=== PATIENT | female | born 1985 | race Caucasian/White ===

== ENCOUNTER → 2018-01-06 | Outpatient (CLI) | payer BC ==
--- NOTE | 2018-01-06 11:12 | US ---
EXAMINATION TYPE: Transabdominal DATE OF EXAM: 11/19/17 COMPARISON: NONE CLINICAL HISTORY: O46.91 BLEEDING/SPOTTING. Spotting yesterday and today, Pap done on saturday. No pre vious US for this . Hx of miscarriage EXAM PERFORMED: Transvaginal (TV) and Transabdominal (TA) EXAM MEASUREMENTS: GESTATIONAL AGE / DATING Dates by LMP: ( 9 weeks/0 days) EDC: 08/11/2018 Dates by Current Scan for: ( 5 weeks/4 days) EDC: 09/04/2018 MATERNAL ANATOMY Uterus: 9.8 x 5.0 x 3.3 cm Right Ovary: 2.7 x 1.8 x 2.0 cm Left Ovary: 2.4 x 1.3 x 1.1 cm Post CDS / Adnexa: free fluid in posterior cul de sac and adjacent to left ovary Presence of corpus luteal cyst: Hypoechoic lesion seen in right ovary = 1.7 x 1.7 x 1.6 cm GESTATION / SURVEY CRL: No CRL seen MSD: 1.0 cm (5 weeks/4 days) Yolk Sac (normal less than 6mm): 2.8 mm IUP: No pole seen within gestational sac Date of LMP: 11/04/2017, Beta HcG (if available): Not available at this time GS and YS seen. No CRL visualized. GS appears irregular shaped. Decidual reaction appears heterogen ous. IMPRESSION: 1. Probable spontaneous in progress. Correlate with serial beta hCG and/or ultrasound.
== END | disposition home or self-care (01) ==
LOC: RADUSWWP 09:36
PROVIDERS: ATTEND Obstetrics & Gynecology
DX: O46.91 Antepartum hemorrhage, unspecified, first trimester (principal); Z3A.00 Weeks of gestation of pregnancy not specified
CPT/HCPCS: 76801; 76817

== ENCOUNTER 2018-03-13 07:01 | Day surgery (SDC) | payer BC ==
[2018-03-12 12:39] VITALS: BMI 24.5
--- NOTE | 2018-03-12 17:43 | P.HPOB ---
History of Present Illness H&P Date: 03/12/18 Chief Complaint: Probable retained products following miscarriage This is a 32-year-old female 3 para 1 who presents for suction dilation and curettage due to probable retained products of conception after miscarriage. She began bleeding around January 10 and did pass tissue at that time. Her bleeding was heavy for about a week and then slowly tapered off it never stopped. Her bleeding has continued to get heavier. Her beta hCG levels have returned to negative. She was tried on Provera daily but this increased her bleeding rather than decreased it. She would like definitive surgical treatment to control her bleeding. Her blood type is A- and she did receive RhoGAM on 01/06/2018. Obstetrical history: . History of 1 vaginal delivery at term. History of 1 miscarriage. OUTSOLE FLEXER history: No history of sexual transmitted diseases. Last menstrual period was 11/04/2017. Social history: She is . She works part-time as a site medical director. Review of Systems Constitutional: Denies chills, Denies fever Eyes: denies blurred vision, denies pain Ears, nose, mouth and throat: Denies headache, Denies sore throat Cardiovascular: Denies chest pain, Denies shortness of breath Respiratory: Denies cough Gastrointestinal: Denies abdominal pain, Denies diarrhea, Denies nausea, Denies vomiting Genitourinary: Reports abnormal vaginal bleeding, Reports pelvic pain Neurological: Denies numbness, Denies weakness Psychiatric: Denies anxiety, Denies depression Past Medical History Past Medical History: Hyperlipidemia Additional Past Medical History / Comment(s): No meds for high cholestrol. History of Any Multi-Drug Resistant Organisms: None Reported Past Surgical History: No Surgical Hx Reported Past Anesthesia/Blood Transfusion Reactions: No Reported Reaction Past Psychological History: No Psychological Hx Reported Smoking Status: Never smoker Past Alcohol Use History: Occasional Past Drug Use History: None Reported - Past Family History Sister(s) Additional Family Medical History / Comment(s): double uterus Medications and Allergies Home Medications Medication Instructions Recorded Confirmed Type Cyanocobalamin (Vitamin B-12) 2,000 mcg PO DAILY 03/12/18 03/12/18 History [Vitamin B-12] L.acidoph,Paracasei, B.lactis 1 each PO DAILY 03/12/18 03/12/18 History [Probiotic] Allergies Allergy/AdvReac Type Severity Reaction Status Date / Time No Known Allergies Allergy Verified 03/12/18 12:31 Exam Osteopathic Statement: *. No significant issues noted on an osteopathic structural exam other than those noted in the History and Physical/Consult. Intake and Output 03/12/18 03/12/18 03/12/18 06:59 14:59 22:59 Other: Weight 60.781 kg HEENT: Within normal limits Heart: Regular rate and rhythm Lungs: Clear to auscultation bilaterally Abdomen: Soft, nontender Pelvic exam: Uterus is retroverted, small, with no adnexal masses or tenderness noted. Bloody discharge is noted from the cervix os is closed. Extremities: Negative Homans Assessment and Plan (1) Retained products of conception after miscarriage Status: Acute Code(s): O03.4 - INCOMPLETE SPONTANEOUS WITHOUT COMPLICATION SNOMED Code(s): 932846743 Plan: Proceed with suction dilation and curettage. I have discussed the risks, benefits, and alternative therapies for the above- mentioned procedure and for both sedation/anesthesia as well as necessary blood products administration, if indicated, as they pertain to this patient. The patient has indicated her understanding and acceptance of the risks and procedures discussed.
[~2018-03-13 07:01] MED LIST: DEXAMETHASONE SOD PHOSPHATE 10 MG/ML 1 ML VIAL IV ONE; HYDROmorphone 0.5 MG/0.5 ML SYRINGE IVP PRN; LACTATED RINGERS 1,000 ML IV SCH; LIDOCAINE 1% 20 ML VIAL (10MG/ML) FOR IV START INTRADERMA PRN; ONDANSETRON 4 MG/2 ML VIAL IVP ONE; Pre Op ABX Message 1 EACH MISC MISCELLANE ONE; SCOPOLAMINE 1.5MG/72HR PATCH TRANSDERM ONE
[2018-03-13 07:39] VITALS: RESP 16
[2018-03-13] MEDS ORDERED: MIDAZOLAM 2 MG/2 ML VIAL ONE (08:12)
[2018-03-13] MEDS ORDERED: fentaNYL (PF) 50 MCG/ML 2 ML AMP ONE (08:12)
[2018-03-13] MEDS ORDERED: KETOROLAC 30 MG/ML 1 ML VIAL ONE (08:12)
[2018-03-13] MEDS ORDERED: LIDOCAINE 1% INJ 10MG/ML (20 ML MDV) ONE (08:12)
[2018-03-13] MEDS ORDERED: PROPOFOL 10 MG/ML 20 ML VIAL IV ONE (08:12)
--- NOTE | 2018-03-13 08:34 | P.OP ---
Date of Procedure: 03/13/18 Preoperative Diagnosis: Probable retained products of conception following miscarriage Postoperative Diagnosis: Same Procedure(s) Performed: Suction dilation and curettage Anesthesia: BERNARDA Surgeon: Nevaeh Trejo Estimated Blood Loss (ml): 20 Pathology: other (Endometrial curettings, probable products of conception) Condition: stable Disposition: same day Indications for Procedure: This is a 32-year-old female 3 para 1 who presents for suction dilation and curettage due to probable retained products of conception after miscarriage. She began bleeding around January 10 and did pass tissue at that time. Her bleeding was heavy for about a week and then slowly tapered off it never stopped. Her bleeding has continued to get heavier. Her beta hCG levels have returned to negative. She was tried on Provera daily but this increased her bleeding rather than decreased it. She would like definitive surgical treatment to control her bleeding. Her blood type is A- and she did receive RhoGAM on 01/06/2018. Operative Findings: Uterus is mid position, sounded to 8 cm. No adnexal masses are palpated. A moderate amount of products of conception are obtained with suction curetting. Description of Procedure: The patient is taken to the operating room where she is placed in the dorsal lithotomy position. She is prepped and draped in the normal sterile fashion. Bladder is drained with a catheter. Examination is performed under anesthesia. Uterus is found to be mid position with no adnexal masses palpated. A weighted speculum was placed in the patient's vagina and a right angle retractor was used to visualize the cervix. The anterior lip of the cervix is grasped with a single-tooth tenaculum. Uterus is sounded to 8 cm. Cervix is gently dilated with Dias dilators until an 8 mm curved suction curet to be placed. Suction curetting was performed with a moderate amount of products of conception obtained. Next a medium-size sharp curet was gently introduced and gentle sharp curettage was performed one time with no further tissue obtained. Suction curetting was performed one further time to remove any blood clot. Good hemostasis was noted. The single-tooth tenaculum was removed from the anterior lip the cervix and pressure was applied with a ring forcep. Once the ring forcep was removed no active bleeding was noted. All instruments are removed from the vagina. All sponge and needle counts are correct. The patient is then taken to recovery room in stable condition.
[2018-03-13 08:49] VITALS: TEMP 98.6
[2018-03-13 09:48] VITALS: BP 109/72; PULSE 70
== END 2018-03-13 10:01 | disposition home or self-care (01) ==
LOC: OR 07:01
PROVIDERS: ATTEND Obstetrics & Gynecology
DX: O02.1 Missed abortion (principal); E78.5 Hyperlipidemia, unspecified
CPT/HCPCS: 88305; 59820; J2250; J1100; J2405; J2001; J3010; J1885; J2704

== ENCOUNTER → 2019-01-15 | Outpatient (CLI) | payer BC ==
--- NOTE | 2019-01-16 07:42 | US ---
EXAMINATION TYPE: US OB >= 14 wk fetus DATE OF EXAM: 01/15/2019 COMPARISON: None CLINICAL HISTORY: [id number] Large for datesLarge for Dates. . TECHNIQUE: Transabdominal (TA) GESTATIONAL AGE / DATING Physician Established: (35 weeks/6 days) EDC: 02/13/2019 Dates by LMP: Unknown Dates by First Scan: This is first scan (35 weeks/2 days) EDC: 02/17/2019 Dates by Current Scan: (35 weeks/2 days) EDC: 02/17/2019 SURVEY IUP: Single PLACENTA: Posterior. Small venous lakes seen superiorly. PREVIA: No Previa PEDRO: 16.14 cm Normal CERVICAL LENGTH (transabdominal: norm > 3.0cm): 3.49 cm BIOMETRY PRESENTATION: Vertex LIE: Longitudinal BPD: 8.50 cm 34 weeks / 2 days HC: 31.81 cm 35 weeks / 6 days AC: 32.17 cm 36 weeks / 1 days FL: 7.0 cm 35 weeks / 6 days ESTIMATED WEIGHT IN GRAMS: 2771 grams ESTIMATED WEIGHT IN LBS/OZ: 6 lbs. 2 oz. WEIGHT PERCENTAGE BASED ON ESTABLISHED DATES: 48.8% HC/AC: 0.99 Normal FL/AC: 21.75 Normal HEART RATE: 144 bpm RHYTHM: Normal Single live intrauterine gestation is seen. No cervical thickening is evident. Normal cephalad presen tation is identified. No ultrasound evidence for placenta previa amniotic fluid index is calculated w ithin normal limits. biometry measurements are concordant felt within normal limits. Third trim alexsander gestation noted. IMPRESSION: As above.
== END ==
LOC: RADUSWWP 15:27
PROVIDERS: ATTEND Obstetrics & Gynecology
DX: O36.63X0 Maternal care for excessive fetal growth, third trimester, not applicable or unspecified (principal); Z3A.35 35 weeks gestation of pregnancy
CPT/HCPCS: 76805

== ENCOUNTER 2019-02-17 06:30 | Inpatient (IN) | payer BC ==
--- NOTE | 2019-02-16 20:51 | P.HPOB ---
History of Present Illness H&P Date: 02/16/19 Chief Complaint: Induction of labor, postdates This is a 33 y.o. female, 4, para 1, with an estimated date of confinement of 02/13/2019, estimated gestational age of 40-4/7 weeks, who presents for induction of labor due to postdates. She admits to good movement and has been feeling occasional irregular contractions. course has been uncomplicated. labs: GC/Chlamydia/Trichomonas-negative Hepatitis B surface antigen-negative RPR-nonreactive Rubella-immune Blood type-A- Antibody screen-negative, RhoGAM was given at approximately 28 weeks Hemoglobin-14.1 Toxoplasma-negative Random glucose-80 One hour Glucola-117 Group B streptococcus-positive Obstetrical history: . History of 1 vaginal delivery that was complicated by a uterine inversion after delivery. She also has a history of 2 miscarriages. Gynecologic history: No history of sexual transmitted diseases. Social history: She is . She works part-time as a biomedical engineering internship. Review of Systems Constitutional: Denies chills, Denies fever Eyes: denies blurred vision, denies pain Ears, nose, mouth and throat: Denies headache, Denies sore throat Cardiovascular: Denies chest pain, Denies shortness of breath Respiratory: Denies cough Gastrointestinal: Reports abdominal pain (Irregular contractions) Genitourinary: Reports pelvic pain, Reports Musculoskeletal: Reports low back pain Integumentary: Denies pruritus, Denies rash Neurological: Denies numbness, Denies weakness Psychiatric: Denies anxiety, Denies depression Past Medical History Past Medical History: Hyperlipidemia Additional Past Medical History / Comment(s): No meds for high cholestrol. Psoriasis. History of Any Multi-Drug Resistant Organisms: None Reported Additional Past Surgical History / Comment(s): D&C Past Anesthesia/Blood Transfusion Reactions: No Reported Reaction Past Psychological History: No Psychological Hx Reported Smoking Status: Never smoker Past Alcohol Use History: Occasional Past Drug Use History: None Reported - Past Family History Sister(s) Additional Family Medical History / Comment(s): double uterus Medications and Allergies Home Medications Medication Instructions Recorded Confirmed Type Cyanocobalamin (Vitamin B-12) 2,000 mcg PO DAILY 03/12/18 03/13/18 History [Vitamin B-12] L.acidoph,Paracasei, B.lactis 1 each PO DAILY 03/12/18 03/13/18 History [Probiotic] Allergies Allergy/AdvReac Type Severity Reaction Status Date / Time No Known Allergies Allergy Verified 03/13/18 07:23 Exam Osteopathic Statement: *. No significant issues noted on an osteopathic structural exam other than those noted in the History and Physical/Consult. HEENT: Within normal limits Heart: Regular rate and rhythm Lungs: Clear to auscultation bilaterally Abdomen: Cervix: 2-1/2 cm/60%/-2 station heart tones: 140s by Doppler Extremities: Negative Homans Assessment and Plan (1) Post-dates Status: Acute Code(s): O48.0 - POST-TERM SNOMED Code(s): 27275401 (2) Group B Streptococcus carrier, +RV culture, currently Status: Acute Code(s): O99.820 - STREPTOCOCCUS B CARRIER STATE COMPLICATING SNOMED Code(s): 1817976265208 Plan: Proceed with oxytocin induction of labor. Expectant management. Epidural anesthesia if desired. Antibiotic prophylaxis for group B streptococcus.
[2019-02-17] MEDS ORDERED: LIDOCAINE 1% 20 ML VIAL (10MG/ML) FOR IV START INTRADERMA PRN (06:40)
[2019-02-17] MEDS ORDERED: CARBOPROST TROMETHAMINE 250 MCG/ML 1 ML AMP IM PRN (06:40)
[2019-02-17] MEDS ORDERED: OXYTOCIN 30 UNITS/500 ML NS 30 UNIT in SALINE 1 500ML.BAG IV SCH (06:40)
[2019-02-17] MEDS ORDERED: LIDOCAINE 0.5% (PF) 5 MG/ML (50 ML SDV) SQ PRN (06:40)
[2019-02-17] MEDS ORDERED: AMPICILLIN 2,000 MG in SODIUM CHLORIDE 0.9% 100 ML IVPB STA (06:40)
[2019-02-17] MEDS ORDERED: METHYLERGONOVINE 0.2 MG/ML 1 ML AMP IM PRN (06:40)
[2019-02-17] MEDS ORDERED: OXYTOCIN 10 UNIT/ML 1 ML VIAL IM PRN (06:40)
[2019-02-17] MEDS ORDERED: TERBUTALINE 1 MG/ML VIAL SQ PRN (06:40)
[2019-02-17 06:52] VITALS: BMI 31.6
[2019-02-17] MEDS: LACTATED RINGERS 1,000 ML IV SCH ×2 (07:00→11:20)
[2019-02-17 07:37] LABS: Anisocytosis Slight; Basophils % (A) 0 %; Eosinophils # (A) 0.1 k/uL (0-0.7); Eosinophils % (A) 1 %; HCT 34.2 % (34.0-46.0); HGB 10.9 gm/dL (11.4-16.0); Hypochromasia Moderate; Lymphocytes # (A) 1.7 k/uL (1.0-4.8); Lymphocytes % (A) 22 %; MCH 24.7 pg (25.0-35.0); MCHC 31.8 g/dL (31.0-37.0); Monocytes # (A) 0.3 k/uL (0-1.0); Monocytes % (A) 3 %; Neutrophils # (A) 5.5 k/uL (1.3-7.7); Neutrophils % (A) 70 %; Platelet Count 204 k/uL (150-450); Poikilocytosis Slight; RBC 4.39 m/uL (3.80-5.40); RDW 16.2 % (11.5-15.5); WBC 7.8 k/uL (3.8-10.6)
[2019-02-17 07:42] LABS: MCV 77.8 fL (80.0-100.0)
[2019-02-17] MEDS: AMPICILLIN 1,000 MG in SODIUM CHLORIDE 0.9% 50 ML IVPB SCH ×2 (11:21→14:54)
[2019-02-17] MEDS ORDERED: diphenhydrAMINE 50 MG CAP PO PRN (17:05)
[2019-02-17] MEDS ORDERED: BENZOCAINE/MENTHOL SPRAY 1 GM/SPRAY AEROSOL TOPICAL PRN (17:05)
[2019-02-17] MEDS ORDERED: IBUPROFEN 600 MG TAB PO PRN (17:05)
[2019-02-17] MEDS ORDERED: SIMETHICONE 80 MG CHEWABLE PO PRN (17:05)
[2019-02-17] MEDS ORDERED: ZOLPIDEM 5 MG TAB PO PRN (17:05)
[2019-02-17] MEDS ORDERED: LANOLIN CREAM 5 GM TUBE TOPICAL PRN (17:05)
[2019-02-17] MEDS ORDERED: HYDROCORTISONE 2.5% RECTAL CREAM 30 GM TUBE RECTAL PRN (17:05)
[2019-02-17] MEDS ORDERED: OXYTOCIN 20 UNITS/1000 ML NS 1,000 ML IV SCH (17:05)
[2019-02-17] MEDS ORDERED: ACETAMINOPHEN TAB 325 MG TAB PO PRN (17:05)
[2019-02-17] MEDS ORDERED: WITCH HAZEL 1 EACH MED..PAD TOPICAL PRN (17:05)
[2019-02-17] MEDS ORDERED: diphenhydrAMINE 25 MG CAP PO PRN (17:05)
[2019-02-17] MEDS ORDERED: diphenhydrAMINE 50 MG/ML 1 ML VIAL IVP PRN ×2 (17:05)
--- NOTE | 2019-02-17 17:07 | P.PROBDLV ---
Vaginal Delivery Note - . Vaginal Delivery Note: The patient progressed to complete dilation after oxytocin induction of labor and artificial rupture membranes with clear fluid noted. She did receive ampicillin while in labor due to positive group B streptococcus. She also received epidural anesthesia. Once reaching complete dilation, she began pushing. 's head came to a crown. With one further push, the infant's head delivered across the perineum and a straight occiput anterior lie. She is encouraged to push one further time to release the anterior shoulder. At first this appeared to be the right shoulder, but then this did not easily released and therefore the baby was turned towards the left shoulder. When this shoulder did not release, the left shoulder was swept posteriorly and delivered posteriorly. Nose and mouth were then bulb suctioned and the remainder the infant easily delivered and was placed on mother's abdomen. Cord was clamped and cut and was taken to warmer for evaluation. A viable male was noted with scores of 9 at 1 minute and 9 at 5 minutes and weight was noted to be 9 lbs. 3 oz. Baby was moving all extremities easily and good cry was noted. Next the placenta delivered shortly thereafter, intact, with a three-vessel cord. This was partially manually extracted due to her history of uterine inversion to make sure that the uterus did not invert with delivery of the placenta. Uterus did contract well after oxytocin was given and uterine massage was carried out. Inspection of the perineum revealed no perineal lacerations. Estimated blood loss is approximately 150 mL's. Both mother and infant are in stable condition.
[2019-02-17 18:39] VITALS: RESP 16
[2019-02-17] MEDS: SENNOSIDES-DOCUSATE SODIUM 1 EACH TAB PO SCH (20:00)
[2019-02-18 06:56] LABS: Basophils % (A) 0 %; Eosinophils # (A) 0.1 k/uL (0-0.7); Eosinophils % (A) 1 %; HGB 10.4 gm/dL (11.4-16.0); Hypochromasia Marked; Lymphocytes # (A) 1.9 k/uL (1.0-4.8); Lymphocytes % (A) 17 %; MCH 24.7 pg (25.0-35.0); MCHC 31.4 g/dL (31.0-37.0); MCV 78.5 fL (80.0-100.0); Mean Platelet Volume 9.8; Monocytes # (A) 0.5 k/uL (0-1.0); Monocytes % (A) 5 %; Neutrophils # (A) 8.6 k/uL (1.3-7.7); Neutrophils % (A) 76 %; Platelet Count 198 k/uL (150-450); Poikilocytosis Slight; RBC 4.21 m/uL (3.80-5.40); RDW 15.6 % (11.5-15.5); WBC 11.4 k/uL (3.8-10.6)
--- NOTE | 2019-02-18 09:06 | P.DS ---
Providers Date of admission: 02/17/19 06:37 Expected date of discharge: 02/18/19 Attending physician: Nevaeh Trejo Primary care physician: Stated None - Discharge Diagnosis(es) (1) Post-dates Current Visit: No Status: Acute (2) Group B Streptococcus carrier, +RV culture, currently Current Visit: No Status: Acute Hospital Course: This is a 33 y.o. female, 4, para 1, who presented at 40-4/7 weeks for induction of labor. She underwent oxytocin induction of labor and delivered a viable male with scores of 9 at 1 minute and 9 at 5 minutes and weight of 9 pounds, 3 oz on 02/17/2019. Her course has been uncomplicated. She is breast-feeding. Lochia is decreasing. She is not taking anything for pain. Vital signs are stable. Abdomen is soft and non-tender. Extremities show negative Donald's. Impression is status post vaginal delivery day #1. Plan is to discharge home today. She will follow up in 6 weeks. Routine instructions are given. She is advised to call the office with any concerns. Procedures: Oxytocin induction of labor. Spontaneous vaginal delivery of viable male infant on 02/17/2019 Patient Condition at Discharge: Stable Plan - Discharge Summary New Discharge Prescriptions: No Action L.acidoph,Paracasei, B.lactis [Probiotic] 1 each PO DAILY Cyanocobalamin (Vitamin B-12) [Vitamin B-12] 2,000 mcg PO DAILY Discharge Medication List Cyanocobalamin (Vitamin B-12) [Vitamin B-12] 2,000 mcg PO DAILY 03/12/18 [History] L.acidoph,Paracasei, B.lactis [Probiotic] 1 each PO DAILY 03/12/18 [History] Follow up Appointment(s)/Referral(s): Nevaeh Trejo DO [Doctor of Osteopathic Medicine] - 6 Weeks Discharge Disposition: HOME SELF-CARE
[2019-02-18 18:51] VITALS: BP 116/62; PULSE 66; TEMP 98
[2019-02-18] MEDS: SENNOSIDES-DOCUSATE SODIUM 1 EACH TAB PO SCH (18:51)
== END 2019-02-18 18:00 | disposition home or self-care (01) | DRG 807 ==
LOC: 4FBP 06:37
PROVIDERS: ADMIT Obstetrics & Gynecology; ATTEND Obstetrics & Gynecology
PROC: 10E0XZZ Delivery of Products of Conception, External Approach (ICD-10-PCS; principal; 2019-02-17)
PROC: 10907ZC Drainage of Amniotic Fluid, Therapeutic from Products of Conception, Via Natural or Artificial Opening (ICD-10-PCS; 2019-02-17)
PROC: 3E033VJ Introduction of Other Hormone into Peripheral Vein, Percutaneous Approach (ICD-10-PCS; 2019-02-17)
PROC: 00HU33Z Insertion of Infusion Device into Spinal Canal, Percutaneous Approach (ICD-10-PCS; 2019-02-17)
PROC: 3E0R3BZ Introduction of Anesthetic Agent into Spinal Canal, Percutaneous Approach (ICD-10-PCS; 2019-02-17)
DX: O48.0 Post-term pregnancy (principal); Z37.0 Single live birth; O99.824 Streptococcus B carrier state complicating childbirth; O26.893 Other specified pregnancy related conditions, third trimester; O99.284 Endocrine, nutritional and metabolic diseases complicating childbirth; E78.5 Hyperlipidemia, unspecified; O99.72 Diseases of the skin and subcutaneous tissue complicating childbirth; L40.9 Psoriasis, unspecified; Z3A.40 40 weeks gestation of pregnancy; Z67.11 Type A blood, Rh negative
CPT/HCPCS: 85025; 86850; 86900; 86901

== ENCOUNTER → 2019-06-23 | Outpatient (CLI) | payer BC ==
--- NOTE | 2019-06-23 16:00 | XR ---
Right foot HISTORY: Pain 3 views of the right foot Bone mineralization, joint spaces and alignment are maintained. There is no fracture or dislocation. IMPRESSION: Normal right foot.
== END | disposition home or self-care (01) ==
LOC: RADXRYALE 11:46
PROVIDERS: ATTEND Physician Assistant Medical
DX: M79.671 Pain in right foot (principal)

== ENCOUNTER → 2021-09-25 | Outpatient (CLI) | payer BC ==
--- NOTE | 2021-09-26 11:22 | MM ---
Reason for exam: screening (asymptomatic). Baseline mammogram. History: Family history of breast cancer in maternal grandmother. Physical Findings: Nurse did not find any significant physical abnormalities on exam. MG 3D Screening Mammo W/Cad Bilateral CC, MLO, and XCCL view(s) were taken. The breast tissue is heterogeneously dense. This may lower the sensitivity of mammography. Finding #1: Architectural distortion in the upper quadrant of the right breast MLO medially. Finding #2: There is an intermediate concern, suspicious 11 mm high density, lobulated mass located 10-11 cm from the nipple in the upper outer quadrant of the left breast. There is a 2cm equal density in the right breast 6.8cm from the nipple middle position. ASSESSMENT: Incomplete: need additional imaging evaluation, BI-RAD 0 RECOMMENDATION: Ultrasound of both breasts. [facility] will attempt to contact patient to return for ultrasound.
== END | disposition home or self-care (01) ==
LOC: RADMAMWWP 13:35
PROVIDERS: ATTEND Obstetrics & Gynecology
DX: Z12.31 Encounter for screening mammogram for malignant neoplasm of breast (principal)
CPT/HCPCS: 77063; 77067

== ENCOUNTER → 2021-10-09 | Outpatient (CLI) | payer BC ==
--- NOTE | 2021-10-10 08:27 | USB ---
Reason for exam: additional evaluation requested from abnormal screening. History: Family history of breast cancer in maternal grandmother. Physical Findings: Nurse did not find any significant physical abnormalities on exam. US Breast Workup Limited PATRICIA Left limited breast ultrasound including focal area of concern, retroareolar and axilla demonstrates a 0.7 x 0.5 x 0.8cm mixed lesion at 2 o'clock. Right limited breast ultrasound including focal area of concern, retroareolar and axilla demonstrates no cystic or solid lesion seen. These results were verbally communicated with the patient and result sheet given to the patient on 10/09/21. ASSESSMENT: Probably benign, BI-RAD 3 RECOMMENDATION: Follow-up diagnostic mammogram of both breasts in 6 months.
== END ==
LOC: RADUSWWP 14:59
PROVIDERS: ATTEND Obstetrics & Gynecology
DX: R92.8 Other abnormal and inconclusive findings on diagnostic imaging of breast (principal)

== ENCOUNTER → 2021-11-29 | Outpatient (CLI) | payer BC ==
--- NOTE | 2021-11-29 15:59 | XR ---
EXAMINATION TYPE: XR chest 2V DATE OF EXAM: 11/29/2021 COMPARISON: 03/18/2013 TECHNIQUE: PA and lateral views submitted. HISTORY: Chronic cough FINDINGS: The lungs are clear and there is no pneumothorax, pleural effusion, or focal pneumonia. Heart size normal. No overt failure. Slight curvature of the spine. IMPRESSION: 1. No acute process.
== END | disposition home or self-care (01) ==
LOC: RADXRYALE 15:25
PROVIDERS: ATTEND Physician Assistant
DX: R07.1 Chest pain on breathing (principal); R05.9 Cough, unspecified
CPT/HCPCS: 71046

== ENCOUNTER → 2022-04-02 | Outpatient (CLI) | payer BC ==
--- NOTE | 2022-04-02 11:24 | MM ---
Reason for Exam: Clinical finding. Last screening mammogram was performed 6 month(s) ago. Patient History: Menarche at age 14. First Full-Term at age 30. Late child-bearing (after 30). Hormonal Contraceptives, from age 22 until age 29. Maternal grandmother had breast cancer. Last menstrual period: 03/13/2022 Risk Values: Laura 5 year model risk: 0.4%. NCI Lifetime model risk: 12.7%. Tissue Density: The breast tissue is heterogeneously dense. This may lower the sensitivity of mammography. Findings: Analyzed By CAD. Asymmetric density posterior superior right MLO view remains unchanged. Additional nodular focal asymmetry posterior upper-outer quadrant left breast remains unchanged. Continued short interval follow-up recommended. No significant change from prior exams. Overall Assessment: Probably benign, BI-RAD 3 Management: Diagnostic Mammogram of both breasts in 6 months. For the bilateral areas of asymmetric density. Total one-year follow-up on both sides. Patient should continue monthly self breast exams. Results were given to the patient verbally at the time of exam. Electronically signed and approved by: Domingo Fagan M.D. Radiologist
== END | disposition home or self-care (01) ==
LOC: RADMAMWWP 10:53
PROVIDERS: ATTEND Obstetrics & Gynecology
DX: R92.8 Other abnormal and inconclusive findings on diagnostic imaging of breast (principal)
CPT/HCPCS: 77062; 77066

== ENCOUNTER → 2023-10-09 | Outpatient (CLI) | payer BC ==
--- NOTE | 2023-10-10 10:07 | MM ---
Reason for Exam: Screening (asymptomatic). Last screening mammogram was performed 12 month(s) ago. Patient History: Menarche at age 14. First Full-Term at age 30. Late child-bearing (after 30). Hormonal Contraceptives, from age 22 until age 29. Maternal grandmother had breast cancer. Last menstrual period: 09/16/2023 Risk Values: Laura 5 year model risk: 0.6%. NCI Lifetime model risk: 12.6%. Prior Study Comparison: 09/25/2021 Bilateral Screening Mammogram, [facility]. 04/02/2022 Bilateral MG 3D diag mammo w/cad [facility], [facility]. 10/02/2022 Bilateral MG 3D diag mammo w/cad PATR[facility], [facility]. Tissue Density: The breast tissue is extremely dense which could obscure a lesion on mammography. Findings: Analyzed By CAD. There is no suspicious group of microcalcifications or new suspicious mass in either breast. Benign-appearing calcification. Overall Assessment: Benign, BI-RAD 2 Management: Screening Mammogram of both breasts in 1 year. . Patient should continue monthly self-breast exams. A clinical breast exam by your physician is recommended on an annual basis. This exam should not preclude additional follow-up of suspicious palpable abnormalities. Note on Laura scores and lifetime risk: 1. A Laura score greater than 3% is considered moderate risk. If this is the case, consider specialist referral to assess eligibility for a risk reducing agent. 2. If overall lifetime risk for the development of breast cancer is 20% or higher, the patient may qualify for future screening with alternating mammogram and breast MRI. Electronically signed and approved by: Bryan Manuel M.D. Radiologis
== END | disposition home or self-care (01) ==
LOC: RADMAMWWP 09:21
PROVIDERS: ATTEND Family Medicine
DX: Z12.31 Encounter for screening mammogram for malignant neoplasm of breast (principal); Z80.3 Family history of malignant neoplasm of breast
CPT/HCPCS: 77063; 77067

== ENCOUNTER → 2024-10-12 | Outpatient (CLI) | payer BC ==
--- NOTE | 2024-10-12 09:44 | MM ---
Reason for Exam: Screening (asymptomatic). Last screening mammogram was performed 12 month(s) ago. Patient History: Menarche at age 14. First Full-Term at age 30. Late child-bearing (after 30). Hormonal Contraceptives, from age 22 until age 29. Maternal grandmother had breast cancer. Last menstrual period: 09/15/2024 Risk Values: Laura 5 year model risk: 0.6%. NCI Lifetime model risk: 12.5%. Prior Study Comparison: 04/02/2022 Bilateral MG 3D diag mammo w/cad [facility], [facility]. 10/02/2022 Bilateral MG 3D diag mammo w/cad [facility], [facility]. 10/09/2023 Bilateral MG 3D screening mammo w/cad, [facility]. Tissue Density: The breasts are extremely dense, which lowers the sensitivity of mammography. Findings: Analyzed By CAD. Right breast: There is no suspicious group of microcalcifications or new suspicious mass. Left breast: There is no suspicious group of microcalcifications or new suspicious mass. Overall Assessment: Negative, BI-RAD 1 Management: Screening Mammogram of both breasts in [address] [facility] will attempt to contact patient to return for supplemental views and ultrasound if indicated. Patient should continue monthly self-breast exams. A clinical breast exam by your physician is recommended on an annual basis. This exam should not preclude additional follow-up of suspicious palpable abnormalities. Note on Laura scores and lifetime risk: 1. A Laura score greater than 3% is considered moderate risk. If this is the case, consider specialist referral to assess eligibility for a risk reducing agent. 2. If overall lifetime risk for the development of breast cancer is 20% or higher, the patient may qualify for future screening with alternating mammogram and breast MRI. [facility], , 10/12/2024 9:41 AM. Electronically signed and approved by: Chago Montaño DO
== END | disposition home or self-care (01) ==
LOC: RADMAMWWP 09:06
PROVIDERS: ATTEND Family Medicine
DX: Z12.31 Encounter for screening mammogram for malignant neoplasm of breast (principal); R92.343 Mammographic extreme density, bilateral breasts; Z80.3 Family history of malignant neoplasm of breast; Z92.0 Personal history of contraception
CPT/HCPCS: 77063; 77067